=== PATIENT | female | born 1995 | race Caucasian/White ===

== ENCOUNTER 2018-03-25 02:29 | Inpatient (IN) | payer OTHER ==
[2018-03-25] MEDS: Lactated Ringers 1,000 ML IV SCH ×3 (14:55→21:44)
[2018-03-25] MEDS: Oxytocin/Normal Saline 30 UNIT/500 ML BAG IV SCH (15:05)
[2018-03-25] MEDS ORDERED: Acetaminophen 325 MG Tab PO PRN (15:25)
[2018-03-25] MEDS ORDERED: Carboprost Tromethamine 250 MCG/1 ML Amp IM PRN (15:25)
[2018-03-25] MEDS ORDERED: Lactated Ringers 500 ML IV ONE (15:25)
[2018-03-25] MEDS ORDERED: Sodium Chloride 0.9% 10 ML Syringe FLUSH PRN (15:25)
[2018-03-25] MEDS ORDERED: Methylergonovine 0.2 MG/1 ML Amp IM PRN (15:25)
[2018-03-25] MEDS ORDERED: Ondansetron 4 MG/2 ML SDV IV PRN (15:25)
[2018-03-25] MEDS ORDERED: Misoprostol 400 MCG (4 X 100 MCG TAB) RECTAL PRN (15:25)
[2018-03-25] MEDS ORDERED: Tranexamic Acid 1,000 MG in Sodium Chloride 0.9% 100 ML IV PRN (15:25)
[2018-03-25] MEDS ORDERED: Lidocaine 1% 30 ML SDV INJECT PRN (15:25)
[2018-03-25] MEDS ORDERED: hydrOXYzine HCl 25 MG Tab PO ONE (19:09)
[2018-03-25] MEDS ORDERED: Bupivacaine 0.75%/D5W 2 ML Amp ONE (20:31)
[2018-03-25] MEDS ORDERED: fentaNYL 100 MCG/2 ML SDV ONE (20:32)
[2018-03-25] MEDS ORDERED: EPINEPHrine 1 MG/ML SDV ONE (20:32)
--- NOTE | 2018-03-25 22:25 | PCM.PRNOTE ---
- Free Text/Narrative Note: Requested to provide analgesia to full term patient in severe pain. Upon entering the room, patient is supine in bed complaining of severe abdominal/ pelvic pain and discomfort. Procedure was discussed with patient including adverse outcomes and expectations. Pt consented to analgesia, SAB/IT. Pt placed into a sitting position. Landmarks for SAB/IT were identified and marked. Hands were washed and appropriate PPE was applied. Back was prepped with betadine x3. A sterile, transparent, fenestrated drape was applied. Excess betadine was removed. Using 3 mL of a 1% lidocaine solution, a skin wheel was placed at the L3/L4 interspace. A 24 ga (4 inch) Pencan spinal needle was inserted until positive for CSF. Negative for heme or paresthesias. Took 3 attempts. Injected fentanyl 30 mcg, sufentanil 20 mcg, and 9.75 mg of a 0.75% bupivacaine solution with an epi wash. Pt was placed left lateral position for approximately 20 minutes. There were zero complications or adverse outcomes. Will continue to monitor. Procedure Date & Time: 03/25/18
[2018-03-26] MEDS ORDERED: Misoprostol 400 MCG (4 X 100 MCG TAB) ONE (02:28)
--- NOTE | 2018-03-26 03:17 | PCM.LDHP ---
L&D History of Present Illness - General Date of Service: 03/25/18 (admitted from [facility]) Admit Problem/Dx: Patient Status Order with Admit Dx/Problem 03/25/18 15:25 Patient Status [ADT] Routine Admission Diagnosis/Problem Admission Diagnosis/Problem Pre-eclampsia in third trimester Source of Information: Patient, Old Records, Provider History Limitations: Reports: No Limitations - History of Present Illness Introduction:: 22yo @ 37w3d presented to clinic for OB check and found to have elevated BP and proteinuria meeting criteria for pre-eclampsia. cervix ripe, and pt admitted for induction. see [facility] episode notes for details. was found to be having cxns on admit. 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 [employer] History: Reports: : 2 Para: 1 LMP (Approximate): - Infectious Disease History Infectious Disease History: Reports: Chicken Pox - Past Surgical History Other HEENT Surgeries/Procedures: lt lazy eye surgery as child, unsuccessful Social & Family History - Family History Family Medical History: Noncontributory - Tobacco Use Smoking Status *Q: Never Smoker Second Hand Smoke Exposure: No - Caffeine Use Caffeine Use: Reports: Soda Other Caffeine Use: 1 can/day - Recreational Drug Use Recreational Drug Use: No - Living Situation & Occupation Living situation: Reports: , with Family Social History Comment: lives with John and their son Regulo H&P Review of Systems - Review of Systems: Review Of Systems: See Below General: Reports: No Symptoms HEENT: Reports: No Symptoms Pulmonary: Reports: No Symptoms Cardiovascular: Reports: No Symptoms Gastrointestinal: Reports: No Symptoms Genitourinary: Reports: No Symptoms Musculoskeletal: Reports: No Symptoms Skin: Reports: No Symptoms Psychiatric: Reports: No Symptoms Neurological: Reports: No Symptoms Hematologic/Lymphatic: Reports: No Symptoms Immunologic: Reports: No Symptoms L&D Exam - Exam Exam: See Below - Vital Signs Vital Signs: Last Vital Signs Temp 99.1 F 03/25/18 20:00 Pulse 84 03/25/18 20:30 Resp 16 03/25/18 20:00 BP 150/73 H 03/25/18 20:30 Pulse Ox Weight: 260 lb - OB Specific Contraction Duration (sec): 60-90 Contraction Frequency (min): 2-3 Contraction Intensity: Moderate Movement: Active Heart Tones: Present Heart Tones per Min: 140 Heart Rate (FHR) Variability: Moderate (6-25 bmp) Presentation: Right Occiput Posterior (ROP) Estimated Weight: 7 - Pitt Score Pitt Score Cervix Position: Midposition Pitt Score Consistency: Soft Pitt Score Effacement: 51-70% Pitt Score Dilation: 3-4 cm Pitt Score 's Station: -2 Pitt Score Total: 8 - Exam General: Alert, Oriented HEENT: Conjunctiva Clear, EACs Clear, Hearing Intact, Mucosa Moist & [place], Nares Patent, Normal Nasal Septum, Posterior Pharynx Clear, Pupils Equal, Other (exotropia noted), PERRLA Neck: Supple, Trachea Midline Lungs: Clear to Auscultation, Normal Respiratory Effort Cardiovascular: Regular Rate, Regular Rhythm GI/Abdominal Exam: Normal Bowel Sounds, Soft, Non-Tender, No Organomegaly, No Distention, No Abnormal Bruit, Pelvis Stable, Other (gravid uterus) Rectal Exam: Normal Exam (external only), Deferred Genitourinary: Normal external exam, Normal bimanual exam, Normal speculum exam , Cervical dilitation Back Exam: Normal Inspection, Full Range of Motion Extremities: Normal Inspection, Normal Range of Motion, Non-Tender, Normal Capillary Refill, Pedal Edema (1+/2+ pitting) Skin: Warm, Dry, Intact Neurological: Cranial Nerves Intact, Reflexes Equal Bilateral Psychiatric: Alert, Normal Affect, Normal Mood - Patient Data Lab Results Last 24 hrs: pre-eclampsia labs from today reassuring with PLT WNL protein noted on dip UA, and protein creatinine ratio 0.2 - Problem List (1) Term SNOMED Code(s): 48920820 ICD Code: Z34.80 - ENCOUNTER FOR SUPRVSN OF NORMAL , UNSP TRIMESTER Status: Acute Current Visit: Yes (2) Mild pre-eclampsia SNOMED Code(s): 40492218 ICD Code: O14.00 - MILD TO MODERATE PRE-ECLAMPSIA, UNSPECIFIED TRIMESTER Status: Acute Current Visit: Yes (3) Blood type AB- SNOMED Code(s): 587918974 ICD Code: Z67.31 - TYPE AB BLOOD, RH NEGATIVE Status: Acute Current Visit : Yes (4) Rubella non-immune status, antepartum SNOMED Code(s): 771323297 ICD Code: O99.89 - OTH DISEASES AND CONDITIONS COMPL PREG/CHLDBRTH; Z28.3 - UNDERIMMUNIZATION STATUS Status: Acute Current Visit: Yes (5) Rubella nonimmune status, delivered, current hospitalization SNOMED Code(s): 845587686 ICD Code: O99.89 - OTH DISEASES AND CONDITIONS COMPL PREG/CHLDBRTH; Z28.3 - UNDERIMMUNIZATION STATUS Status: Acute Current Visit: Yes (6) Group B Streptococcus not isolated SNOMED Code(s): 111860135 ICD Code: [id number] - Status: Acute Current Visit: Yes (7) Mother currently breast-feeding SNOMED Code(s): 654469350 ICD Code: [id number] - Status: Acute Current Visit: Yes (8) Vacuum extraction, delivered, current hospitalization SNOMED Code(s): 088028082 ICD Code: O66.5 - ATTEMPTED APPLICATION OF VACUUM EXTRACTOR AND FORCEPS Status: Acute Current Visit: Yes (9) Right occiput posterior presentation of fetus SNOMED Code(s): 82326502 ICD Code: O64.0XX0 - OBSTRUCTED LABOR DUE TO INCMPL ROTATION OF HEAD, UNSP Status: Acute Current Visit: Yes (10) Second degree laceration of perineum, delivered, current hospitalization SNOMED Code(s): 680768620 ICD Code: O70.1 - SECOND DEGREE PERINEAL LACERATION DURING DELIVERY Status : Acute Current Visit: Yes Problem List Initiated/Reviewed/Updated: Yes Orders Last 24hrs: Active Orders 24 hr Category Date Time Status Patient Status [ADT] Routine ADT 03/25/18 15:25 Active Communication Order [RC] ASDIRECTED Care 03/25/18 15:25 Active Notify Provider Vital Signs OB [RC] ASDIRECTED Care 03/25/18 15:25 Active Notify Provider [RC] PRN Care 03/25/18 15:25 Active Pump Management, Intrathecal [RC] ASDIRECTED Care 03/25/18 15:33 Active Up ad Ade [RC] ASDIRECTED Care 03/25/18 15:25 Active Vital Signs [RC] PER UNIT ROUTINE Care 03/25/18 15:25 Active Acetaminophen [Tylenol] Med 03/25/18 15:25 Active 650 mg PO Q4H PRN Carboprost Tromethamine [Hemabate DS] Med 03/25/18 15:25 Active 250 mcg IM ASDIRECTED PRN Lactated Ringers [Ringers, Lactated] 1,000 ml Med 03/25/18 15:30 Active IV ASDIRECTED Lidocaine 1% [Xylocaine-MPF 1%] Med 03/25/18 15:25 Active 30 ml INJECT ASDIRECTED PRN Methylergonovine [Methergine] Med 03/25/18 15:25 Active 0.2 mg IM ASDIRECTED PRN Misoprostol [Cytotec] Med 03/25/18 15:25 Active 800 mcg RECTAL ASDIRECTED PRN Ondansetron [Zofran] Med 03/25/18 15:25 Active 4 mg IV Q4H PRN Oxytocin/Normal Saline [Pitocin in NS 30 UNIT/500 ML] Med 03/25/18 15:45 Active 30 unit in 500 ml IV TITRATE Sodium Chloride 0.9% [Saline Flush] Med 03/25/18 15:25 Active 10 ml FLUSH ASDIRECTED PRN Tranexamic Acid [Cyklokapron] 1,000 mg Med 03/25/18 15:25 Active Sodium Chloride 0.9% [Normal Saline] 100 ml IV ONETIME Saline Lock Insert [OM.PC] Routine Oth 03/25/18 15:25 Ordered Resuscitation Status Routine Resus Stat 03/25/18 15:25 Ordered Medication Orders Acetaminophen (Tylenol) 650 mg PO Q4H PRN PRN Reason: Pain (Mild 1-3) and fever Carboprost Tromethamine (Hemabate Ds) 250 mcg IM ASDIRECTED PRN PRN Reason: HEMORRHAGE Lactated Ringer's (Ringers, Lactated) 1,000 mls @ 125 mls/hr IV ASDIRECTED INÉS Last Admin: 03/25/18 21:44 Dose: 125 mls/hr Infusion: 03/25/18 21:44 Dose: 125 mls/hr Admin: 03/25/18 20:01 Dose: 125 mls/hr Infusion: 03/25/18 20:00 Dose: 125 mls/hr Admin: 03/25/18 14:55 Dose: 125 mls/hr Tranexamic Acid 1,000 mg/ (Sodium Chloride) 110 mls @ 660 mls/hr IV ONETIME PRN PRN Reason: Bleeding Oxytocin/Sodium Chloride (Pitocin In Ns 30 Unit/500 Ml) 30 unit in 500 mls @ 2 mls/hr IV TITRATE INÉS; Protocol Last Titration: 03/25/18 21:30 Dose: 8 mls/hr, 8 mls/hr Titration: 03/25/18 21:05 Dose: 6 mls/hr, 6 mls/hr Titration: 03/25/18 20:56 Dose: 0 mls/hr, 0 mls/hr Titration: 03/25/18 18:45 Dose: 5 mls/hr, 5 mls/hr Titration: 03/25/18 16:45 Dose: 4 mls/hr, 4 mls/hr Titration: 03/25/18 15:50 Dose: 3 mls/hr, 3 mls/hr Admin: 03/25/18 15:05 Dose: 2 mls/hr, 2 mls/hr Lidocaine HCl (Xylocaine-Mpf 1%) 30 ml INJECT ASDIRECTED PRN PRN Reason: Perineal Repair Methylergonovine Maleate (Methergine) 0.2 mg IM ASDIRECTED PRN PRN Reason: Hemorrhage Misoprostol (Cytotec) 800 mcg RECTAL ASDIRECTED PRN PRN Reason: Hemorrhage Ondansetron HCl (Zofran) 4 mg IV Q4H PRN PRN Reason: Nausea/Vomiting Last Admin: 03/25/18 20:12 Dose: 4 mg Sodium Chloride (Saline Flush) 10 ml FLUSH ASDIRECTED PRN PRN Reason: Keep Vein Open Assessment/Plan Comment:: Assessment: 22yo @ 37w3d with mild pre-Eclampsia cervix ripe for induction rubella non-immune GBS negative AB negative blood type, received RhoGam in [place] NST reactive Plan: Admit for induction labs done at [facility]--reassuring AROM done @ [facility] with return of clear fluid will proceed with pitocin augmentation further management pending her course in labor. gabino
[2018-03-26] MEDS ORDERED: Measles, Mumps & Rubella Vaccine 0.5 ML SDV SUBCUT ONE (03:34)
--- NOTE | 2018-03-26 03:43 | PCM.DEL ---
L & D Note - General Info Date of Service: 03/26/18 (time of delivery: 0229) Mother's Due Date: 04/12/18 - Delivery Note Labor: Augmented by Oxytocin, Induced by ARM Delivery Outcome: Livebirth Delivery Method: Spontaneous Vaginal Delivery-Single Infant Delivery Mode: Vacuum Extraction Presentation: Right Occiput Posterior (ROP) Nuchal Cord: None Prep: Povidone-Iodine (Betadine Anesthesia Type: Local, Intrathecal Anesthetic: Lidocaine (Xylocaine) 1% Plain Local Anesthetic Volume: 5cc Amniotic Fluid Description: Clear Episiotomy Type: None Laceration: 2nd Degree Suture type: Vicryl Suture size: 2-0 Placenta: Intact, Expressed Cord: 3 Vessels Estimated Blood Loss: 200 Resuscitation Needed: No : Suctioned, Bulb Syringe, Stimulated, Warmed, Oneill Used Provider: Mary Caraballo Score 1 min: 8 Score 5 min: 9 Second Stage Interventions: Reports: Encouragement Given, Laboring Down, Pushing Effectively, Pushing, Knee Chest Position, Other (see below) (peanut ball) Delivery Comments (Free Text/Narrative):: Renetta was pushing extremely well and bringing baby's head down to +2 station with cxns/pushing. baby in OP position. she had been pushing for extended period of time and tried many positions and peanut ball, knee chest, etc. Intrathecal wearing off significantly and she was having a lot of back labor. discussed options, and she wishes to pursue vacuum assistance. Low profile placed without difficulty, and with one pull, vertex delivered in ROP position, followed by rest of baby, immediately to mother's abdomen. strong cry at . excellent APGARs. 3VC, clamped by me, and cut by FOAnabel Lopez. placenta delivered intact. 2nd degree midline lac anesthetized and repaired in standard fashion 200c EBL fundus firm baby nursing. routine PP and nursery cares and orders. hmb Induction Criteria - Pitt Score Pitt Score Dilation: 3-4 cm Pitt Score Effacement: >80% Pitt Score 's Station: -2 Pitt Score Consistency: Soft Pitt Score Cervix Position: Midposition Pitt Score Total: 9 Pitt Score Presenting Part: Reports: Cephalic - Induction Gestational Age >/= 39 wks: No Medical Indication: pre-eclampsia with BP elevated sys>150s and proteinuria on dipstick, confirmed with protein/creatinine ratio 0.2, increasing pitting edema pt with contractions and ripe cervix over 37 weeks. hmb Estimated Pelvis: Reports: Adequate Reassuring Monitoring Strip: Yes Absence of Tachy Systole: Yes - Augmentation Estimated Pelvis: Reports: Adequate Weight Estimated:: Reports: AGA Reassuring Monitoring Strip: Yes Absence of Tachy Systole: Yes Vacuum Extractor Progress Note - Alternative Labor Strategies Considered Alternative Labor Strategies Considered:: Reports: Yes Strategies Considered:: Reports: Contraction Intensity Adequate, Position Changes Used to Facilitate Rotation & Descent, Empty Bladder Indications Considered:: Reports: Yes Indications:: Reports: Prolonged 2nd Stage, Shortening of 2nd Stage for Maternal Benefit Time Out:: Reports: Yes - Patient Prepared Patient Prepared:: Reports: Yes Informed Consent:: Reports: Verbal Risks: Reports: Yes Anesthesia/Analgesia Adequate:: Reports: Yes - Probability of Success High Probability of Success:: Reports: Yes Weight Estimated:: Reports: AGA Patient Diabetic:: Reports: No Pelvis Adequate:: Reports: Yes Position:: OP, +2 station Asynclitic:: Reports: No Station:: +2 - Application Time Maximum Application Time & Number of Pop-Offs Predetermined:: Reports: Yes Type of Vacuum Used:: Reports: Low profile Vacuum Extraction: Successful Comments:: vacuum placed and was on with only one contraction, successful with first pull. hmb - Exit Strategy Exit strategy available:: Reports: Yes and resuscitation teams readily available:: Reports: Yes Consult as indicated:: not indicated - General Info Date of Service: 03/26/18 Functional Status: Reports: Pain Controlled - Review of Systems General: Reports: No Symptoms HEENT: Reports: No Symptoms Pulmonary: Reports: No Symptoms Cardiovascular: Reports: No Symptoms Gastrointestinal: Reports: No Symptoms Genitourinary: Reports: No Symptoms Musculoskeletal: Reports: No Symptoms Skin: Reports: No Symptoms Neurological: Reports: No Symptoms Psychiatric: Reports: No Symptoms - Patient Data Vitals - Most Recent: Last Vital Signs Temp 99.1 F 03/25/18 20:00 Pulse 84 03/25/18 20:30 Resp 16 03/25/18 20:00 BP 150/73 H 03/25/18 20:30 Pulse Ox Weight - Most Recent: 260 lb Med Orders - Current: Current Medications Acetaminophen (Tylenol) 650 mg PO Q4H PRN PRN Reason: Pain (Mild 1-3) and fever Carboprost Tromethamine (Hemabate Ds) 250 mcg IM ASDIRECTED PRN PRN Reason: HEMORRHAGE Lactated Ringer's (Ringers, Lactated) 1,000 mls @ 125 mls/hr IV ASDIRECTED INÉS Last Admin: 03/25/18 21:44 Dose: 125 mls/hr Tranexamic Acid 1,000 mg/ (Sodium Chloride) 110 mls @ 660 mls/hr IV ONETIME PRN PRN Reason: Bleeding Oxytocin/Sodium Chloride (Pitocin In Ns 30 Unit/500 Ml) 30 unit in 500 mls @ 2 mls/hr IV TITRATE INÉS; Protocol Last Titration: 03/25/18 21:30 Dose: 8 mls/hr, 8 mls/hr Lidocaine HCl (Xylocaine-Mpf 1%) 30 ml INJECT ASDIRECTED PRN PRN Reason: Perineal Repair Measles/Mumps/Rubella Vaccine Live (M-M-R Ii Vaccine) 0.5 ml SUBCUT .ONCE ONE Stop: 03/26/18 03:35 Methylergonovine Maleate (Methergine) 0.2 mg IM ASDIRECTED PRN PRN Reason: Hemorrhage Misoprostol (Cytotec) 800 mcg RECTAL ASDIRECTED PRN PRN Reason: Hemorrhage Ondansetron HCl (Zofran) 4 mg IV Q4H PRN PRN Reason: Nausea/Vomiting Last Admin: 03/25/18 20:12 Dose: 4 mg Sodium Chloride (Saline Flush) 10 ml FLUSH ASDIRECTED PRN PRN Reason: Keep Vein Open Discontinued Medications Bupivacaine HCl/Dextrose (Marcaine 0.75% Spinal) Confirm Administered Dose 2 ml .ROUTE .STK-MED ONE Stop: 03/25/18 20:32 Epinephrine HCl (Adrenalin) Confirm Administered Dose 1 mg .ROUTE .STK-MED ONE Stop: 03/25/18 20:33 Fentanyl (Sublimaze) Confirm Administered Dose 100 mcg .ROUTE .STK-MED ONE Stop: 03/25/18 20:33 Hydroxyzine HCl (Atarax) 50 mg PO ONETIME ONE Stop: 03/25/18 19:10 Last Admin: 03/25/18 23:52 Dose: Not Given Lactated Ringer's (Ringers, Lactated) 500 mls @ 500 mls/hr IV .BOLUS ONE Stop: 03/25/18 16:24 Misoprostol (Cytotec) Confirm Administered Dose 400 mcg .ROUTE .STK-MED ONE Stop: 03/26/18 02:29 Sufentanil Citrate (Sufenta) Confirm Administered Dose 50 mcg .ROUTE .STK-MED ONE Stop: 03/25/18 20:33 - Problem List & Annotations (1) Term SNOMED Code(s): 59342900 Code(s): Z34.80 - ENCOUNTER FOR SUPRVSN OF NORMAL , UNSP TRIMESTER Status: Acute Current Visit: Yes (2) Mild pre-eclampsia SNOMED Code(s): 50617083 Code(s): O14.00 - MILD TO MODERATE PRE-ECLAMPSIA, UNSPECIFIED TRIMESTER Status: Acute Current Visit: Yes (3) Blood type AB- SNOMED Code(s): 749222985 Code(s): Z67.31 - TYPE AB BLOOD, RH NEGATIVE Status: Acute Current Visit : Yes (4) Rubella non-immune status, antepartum SNOMED Code(s): 862034600 Code(s): O99.89 - OTH DISEASES AND CONDITIONS COMPL PREG/CHLDBRTH; Z28.3 - UNDERIMMUNIZATION STATUS Status: Acute Current Visit: Yes (5) Rubella nonimmune status, delivered, current hospitalization SNOMED Code(s): 422514748 Code(s): O99.89 - OTH DISEASES AND CONDITIONS COMPL PREG/CHLDBRTH; Z28.3 - UNDERIMMUNIZATION STATUS Status: Acute Current Visit: Yes (6) Group B Streptococcus not isolated SNOMED Code(s): 348126782 Code(s): BXY7653 - Status: Acute Current Visit: Yes (7) Mother currently breast-feeding SNOMED Code(s): 538596056 Code(s): HAU0989 - Status: Acute Current Visit: Yes (8) Vacuum extraction, delivered, current hospitalization SNOMED Code(s): 075281033 Code(s): O66.5 - ATTEMPTED APPLICATION OF VACUUM EXTRACTOR AND FORCEPS Status: Acute Current Visit: Yes (9) Right occiput posterior presentation of fetus SNOMED Code(s): 97955499 Code(s): O64.0XX0 - OBSTRUCTED LABOR DUE TO INCMPL ROTATION OF HEAD, UNSP Status: Acute Current Visit: Yes (10) Second degree laceration of perineum, delivered, current hospitalization SNOMED Code(s): 355539241 Code(s): O70.1 - SECOND DEGREE PERINEAL LACERATION DURING DELIVERY Status: Acute Current Visit: Yes - Problem List Review Problem List Initiated/Reviewed/Updated: Yes - My Orders Last 24 Hours: My Active Orders 03/25/18 15:25 Patient Status [ADT] Routine Communication Order [RC] ASDIRECTED Notify Provider Vital Signs OB [RC] ASDIRECTED Notify Provider [RC] PRN Up ad Ade [RC] ASDIRECTED Vital Signs [RC] PER UNIT ROUTINE Acetaminophen [Tylenol] 650 mg PO Q4H PRN Carboprost Tromethamine [Hemabate DS] 250 mcg IM ASDIRECTED PRN Lidocaine 1% [Xylocaine-MPF 1%] 30 ml INJECT ASDIRECTED PRN Methylergonovine [Methergine] 0.2 mg IM ASDIRECTED PRN Misoprostol [Cytotec] 800 mcg RECTAL ASDIRECTED PRN Ondansetron [Zofran] 4 mg IV Q4H PRN Sodium Chloride 0.9% [Saline Flush] 10 ml FLUSH ASDIRECTED PRN Tranexamic Acid [Cyklokapron] 1,000 mg Sodium Chloride 0.9% [Normal Saline] 100 ml IV ONETIME Saline Lock Insert [OM.PC] Routine Resuscitation Status Routine 03/25/18 15:30 Lactated Ringers [Ringers, Lactated] 1,000 ml IV ASDIRECTED 03/25/18 15:33 Pump Management, Intrathecal [RC] ASDIRECTED 03/25/18 15:45 Oxytocin/Normal Saline [Pitocin in NS 30 UNIT/500 ML] 30 unit in 500 ml IV TITRATE 03/26/18 03:34 Vaccines to be Administered [RC] PER UNIT ROUTINE Measles, Mumps & Rubella [M-M-R II Vaccine] 0.5 ml SUBCUT .ONCE ONE - Plan Plan:: Assessment: 22yo @ 37w3d with mild pre-Eclampsia cervix ripe for induction rubella non-immune GBS negative AB negative blood type, received RhoGam in [place] NST reactive Plan: Admit for induction labs done at [facility]--reassuring AROM done @ [facility] with return of clear fluid will proceed with pitocin augmentation further management pending her course in labor. hmb Delivery comment: Viable male infant born on [birth year] @ 0229 APGARs 8 & 9 weight pending VAVD without complications cord blood work up ordered--will get RhoGam if indicated MMR ordered for non-immune Rubella status will continue to monitor BP closely. other routine cares and orders. All questions answered family appears happy with care and plan. b
[2018-03-26] MEDS: Oxytocin/Normal Saline 30 UNIT/500 ML BAG IV SCH (04:39)
[2018-03-26] MEDS ORDERED: Benzocaine/Menthol 20%-0.5% Spray 56 GM Canister TOP PRN (04:47)
--- NOTE | 2018-03-26 11:27 | PCM.SN ---
- Free Text/Narrative Note: DOS: 03[birth year]-18 Doing well, delivered earlier today. some back discomfort eating well voiding well nursing and pumping Afebrile, VSS BAby is RH positive She will get RhoGam as indicated Continue to follow closely Likely home Friday or Friday pending clinical course of mom and baby. hmb
[2018-03-26] MEDS ORDERED: Simethicone 80 MG Tab.Chew PO PRN (12:21)
[2018-03-26] MEDS ORDERED: Zolpidem 5 MG Tab PO PRN (12:21)
[2018-03-26] MEDS ORDERED: fentaNYL 100 MCG/2 ML SDV ITHECAL ONE (12:32)
[2018-03-26] MEDS ORDERED: EPINEPHrine 1 MG/ML SDV ONE (12:32)
[2018-03-26] MEDS ORDERED: Bupivacaine 0.75%/D5W 2 ML Amp ONE (12:32)
[2018-03-26] MEDS: Ibuprofen 800 MG Tab PO PRN (13:49)
[2018-03-26] MEDS: Docusate Sodium 100 MG Cap PO PRN (21:42)
[2018-03-27] MEDS: Ibuprofen 800 MG Tab PO PRN (01:01)
[2018-03-27] MEDS: Docusate Sodium 100 MG Cap PO PRN (07:37)
[2018-03-27] MEDS: Prenatal Multivitamin with Calcium/Folic Acid/Iron Tab PO SCH ×2 (07:37→08:12)
[2018-03-27 08:15] VITALS: BP 143/84
--- NOTE | 2018-03-27 11:02 | PCM.PNPP ---
- General Info Date of Service: 03/27/18 (PPD # 1 S/P Vacuum assisted vaginal Delivery) Functional Status: Reports: Pain Controlled, Tolerating Diet, Ambulating, Urinating - Review of Systems General: Reports: No Symptoms HEENT: Reports: No Symptoms Pulmonary: Reports: No Symptoms Cardiovascular: Reports: No Symptoms Gastrointestinal: Reports: No Symptoms Genitourinary: Reports: No Symptoms Musculoskeletal: Reports: No Symptoms Skin: Reports: No Symptoms Neurological: Reports: No Symptoms Psychiatric: Reports: No Symptoms - General Info Date of Service: 03/27/18 (PPD # 1 S/P Vacuum assisted vaginal delivery) - Patient Data Vital Signs - Most Recent: Last Vital Signs Temp 98.1 F 03/27/18 08:00 Pulse 76 03/27/18 08:00 Resp 16 03/27/18 08:00 BP 143/84 H 03/27/18 08:00 Pulse Ox 100 03/27/18 08:00 Weight - Most Recent: 260 lb Lab Results - Last 24 Hours: Laboratory Results - last 24 hr 03/26/18 03/27/18 Range/Units 08:35 06:05 WBC 10.5 H (5.0-10.0) 10^3/uL RBC 3.82 L (4.2-5.4) 10^6/uL Hgb 11.3 L (12.0-16.0) g/dL Hct 35.1 L (37.0-47.0) % MCV 91.9 (80-100) fL MCH 29.6 (27.0-34.0) pg MCHC 32.2 L (33.0-35.0) g/dL Plt Count 130 L (150-450) 10^3/uL Antibody Identification Anti-D Med Orders - Current: Current Medications Acetaminophen (Tylenol) 650 mg PO Q4H PRN PRN Reason: Pain (Mild 1-3) and fever Last Admin: 03/27/18 07:37 Dose: 650 mg Benzocaine/Menthol (Dermoplast Pain Relief Lisman) 1 gm TOP ASDIRECTED PRN PRN Reason: Perineal Comfort Measure Last Admin: 03/26/18 09:45 Dose: 1 spray Carboprost Tromethamine (Hemabate Ds) 250 mcg IM ASDIRECTED PRN PRN Reason: HEMORRHAGE Docusate Sodium (Colace) 100 mg PO BID PRN PRN Reason: Constipation Last Admin: 03/27/18 07:37 Dose: 100 mg Lactated Ringer's (Ringers, Lactated) 1,000 mls @ 125 mls/hr IV ASDIRECTED INÉS Last Admin: 03/25/18 21:44 Dose: 125 mls/hr Tranexamic Acid 1,000 mg/ (Sodium Chloride) 110 mls @ 660 mls/hr IV ONETIME PRN PRN Reason: Bleeding Oxytocin/Sodium Chloride (Pitocin In Ns 30 Unit/500 Ml) 30 unit in 500 mls @ 2 mls/hr IV TITRATE INÉS; Protocol Last Titration: 03/26/18 06:00 Dose: 0 mls/hr, 0 mls/hr Ibuprofen (Motrin) 800 mg PO Q8H PRN PRN Reason: Mild Pain or Fever Last Admin: 03/27/18 01:01 Dose: 800 mg Lidocaine HCl (Xylocaine-Mpf 1%) 30 ml INJECT ASDIRECTED PRN PRN Reason: Perineal Repair Last Admin: 03/26/18 01:40 Dose: 10 ml Methylergonovine Maleate (Methergine) 0.2 mg IM ASDIRECTED PRN PRN Reason: Hemorrhage Misoprostol (Cytotec) 800 mcg RECTAL ASDIRECTED PRN PRN Reason: Hemorrhage Ondansetron HCl (Zofran) 4 mg IV Q4H PRN PRN Reason: Nausea/Vomiting Last Admin: 03/25/18 20:12 Dose: 4 mg Prenat Multivit/Video Network Engineer/Iron/Folic Ac ( Plus Iron) 1 each PO DAILY [facility] Last Admin: 03/27/18 08:12 Dose: Not Given Simethicone (Simethicone) 80 mg PO Q4H PRN PRN Reason: Gas Sodium Chloride (Saline Flush) 10 ml FLUSH ASDIRECTED PRN PRN Reason: Keep Vein Open Zolpidem Tartrate (Ambien) 5 mg PO BEDTIME PRN PRN Reason: Insomnia Discontinued Medications Bupivacaine HCl/Dextrose (Marcaine 0.75% Spinal) Confirm Administered Dose 2 ml .ROUTE .STK-MED ONE Stop: 03/25/18 20:32 Last Admin: 03/26/18 08:16 Dose: Not Given Bupivacaine HCl/Dextrose (Marcaine 0.75% Spinal) 1.3 ml .XX .STK-MED ONE Stop: 03/26/18 12:33 Epinephrine HCl (Adrenalin) Confirm Administered Dose 1 mg .ROUTE .STK-MED ONE Stop: 03/25/18 20:33 Last Admin: 03/26/18 08:16 Dose: Not Given Epinephrine HCl (Adrenalin) 0.1 mg .XX .STK-MED ONE Stop: 03/26/18 12:33 Fentanyl (Sublimaze) Confirm Administered Dose 100 mcg .ROUTE .STK-MED ONE Stop: 03/25/18 20:33 Last Admin: 03/26/18 08:16 Dose: Not Given Fentanyl (Sublimaze) 30 mcg ITHECAL .STK-MED ONE Stop: 03/26/18 12:33 Hydroxyzine HCl (Atarax) 50 mg PO ONETIME ONE Stop: 03/25/18 19:10 Last Admin: 03/25/18 23:52 Dose: Not Given Lactated Ringer's (Ringers, Lactated) 500 mls @ 500 mls/hr IV .BOLUS ONE Stop: 03/25/18 16:24 Last Admin: 03/26/18 12:33 Dose: Not Given Lidocaine HCl (Xylocaine-Mpf 1%) 3 ml .XX .STK-MED ONE Stop: 03/26/18 12:33 Measles/Mumps/Rubella Vaccine Live (M-M-R Ii Vaccine) 0.5 ml SUBCUT .ONCE ONE Stop: 03/26/18 03:35 Last Admin: 03/26/18 09:45 Dose: 0.5 ml Misoprostol (Cytotec) Confirm Administered Dose 400 mcg .ROUTE .STK-MED ONE Stop: 03/26/18 02:29 Last Admin: 03/26/18 09:05 Dose: Not Given Sufentanil Citrate (Sufenta) Confirm Administered Dose 50 mcg .ROUTE .STK-MED ONE Stop: 03/25/18 20:33 Last Admin: 03/26/18 08:17 Dose: Not Given Sufentanil Citrate (Sufenta) 20 mcg ITHECAL .STK-MED ONE Stop: 03/26/18 12:33 - Interaction Infant Disposition, : in Room with Family Infant Interaction: Holding Infant Feeding: Attempted ; Nursed Fair/Poor, Continues to Breastfeed, Encouraged to Breastfeed Support Person: - Recovery Exam Fundal Tone: Firm Fundal Level: 1 Fingerbreadths Below Umbilicus Fundal Placement: Midline Lochia Amount: Small Lochia Color: Rubra/Red Perineum Description: Intact, Minimal Bruising/Swelling Episiotomy/Laceration: None Bladder Status: Voiding Urinary Elimination: Voided - Exam General: Alert, Oriented, Cooperative, No Acute Distress HEENT: Pupils Equal, Pupils Reactive, Mucous Membr. Moist/[place] Neck: Supple Lungs: Clear to Auscultation, Normal Respiratory Effort Cardiovascular: Regular Rate, Regular Rhythm, No Murmurs GI/Abdominal Exam: Normal Bowel Sounds, Soft, Non-Tender, No Distention Extremities: Normal Inspection, Normal Range of Motion, Non-Tender, No Pedal Edema Skin: Warm, Dry Wound/Incisions: Healing Well Neurological: No New Focal Deficit, Normal Gait, Normal Speech, Normal Tone Psy/Mental Status: Alert, Normal Affect, Normal Mood - Problem List Review Problem List Initiated/Reviewed/Updated: Yes - My Orders Last 24 Hours: My Active Orders 03/27/18 10:52 Ready for Discharge [RC] PER UNIT ROUTINE - Plan Plan:: Assessment: PPD # 1 S/P Vacuum assisted vaginal delivery Doing well PLAN: Discharge to home Follow-up with Dr. Caraballo for recheck Ibuprofen for pain as needed.
--- NOTE | 2018-03-27 13:13 | DISCH ---
INDICATION FOR ADMISSION: Ms. Callahan is a 22-year-old, 2, para 1-0-0-1 female, at 37 and 3/7 weeks' gestation, who reported to Labor and Delivery for induction of labor. She was found to have preeclampsia without severe features. She had elevated blood pressure with proteinuria. She was 3 to 4 cm dilated, 60% effaced, and -2 station on admission, so Pitocin augmentation was started. Artificial rupture of membranes occurred with clear fluid noted. The patient tolerated her labor quite well. She did have an intrathecal for pain control which worked quite well. Once she got to complete, she started pushing. She had a prolonged second stage labor, so vacuum-assisted vaginal delivery occurred with one push and one pull with delivery of a viable male infant weighing 6 pounds 10 ounces and 19-1/4 inches long with scores of 9 at 1 minute and 9 at 5 minutes. She recovered and did quite well. The infant went to the nursery. No complications occurred throughout her hospital stay. She was afebrile. Vital signs were stable. She tolerated her diet well and ambulated quite well. She was discharged to home on day #1. LABORATORY AND DIAGNOSTIC STUDIES: On 03/27/2018, WBC 10.5, hemoglobin 11.3, hematocrit 35.1, and platelet count 130,000. DISCHARGE INSTRUCTIONS: 1. Discharged to home. 2. Follow up with [facility] at [place] for a 6-week checkup or sooner with Dr. Caraballo if needed. 3. Ibuprofen 800 mg 1 tablet t.i.d. p.r.n. for pain. 4. Discharge instructions including activity, followup, medications, diet, and wound care were discussed with the patient. She understands these and is willing to comply with these. 5. All questions answered. DISCHARGE DIAGNOSES: 1. A 37 and 3/7-week intrauterine . 2. Preeclampsia without severe features. 3. Pitocin augmentation. 4. Artificial rupture of membranes. 5. Prolonged second stage labor. 6. Vacuum-assisted vaginal delivery of a viable male infant, weighing 6 pounds 10 ounces, 19-1/4 inches long with scores of 9 at 1 minute and 9 at 5 minutes. 7. Intrathecal anesthesia. 8. Rubella nonimmune. 9. AB negative blood type. 10.RhoGAM IM 300 mcg given. MOD /[id number]
== END 2018-03-27 12:30 | disposition home or self-care (01) | DRG 775 ==
LOC: DL.OB 02:29 → OBSVTOIN 03-26 02:29
PROVIDERS: ADMIT Family Medicine; ATTEND Family Medicine
PROC: 3E0S3GC Introduction of Other Therapeutic Substance into Epidural Space, Percutaneous Approach (ICD-10-PCS; 2018-03-25)
PROC: 10D07Z6 Extraction of Products of Conception, Vacuum, Via Natural or Artificial Opening (ICD-10-PCS; principal; 2018-03-26)
PROC: 0KQM0ZZ Repair Perineum Muscle, Open Approach (ICD-10-PCS; 2018-03-26)
PROC: 3E033VJ Introduction of Other Hormone into Peripheral Vein, Percutaneous Approach (ICD-10-PCS; 2018-03-26)
PROC: 10907ZC Drainage of Amniotic Fluid, Therapeutic from Products of Conception, Via Natural or Artificial Opening (ICD-10-PCS; 2018-03-26)
PROC: 3E0134Z Introduction of Serum, Toxoid and Vaccine into Subcutaneous Tissue, Percutaneous Approach (ICD-10-PCS; 2018-03-26)
DX: O14.04 Mild to moderate pre-eclampsia, complicating childbirth (principal); O64.0XX0 Obstructed labor due to incomplete rotation of fetal head, not applicable or unspecified; O70.1 Second degree perineal laceration during delivery; Z37.0 Single live birth; Z3A.37 37 weeks gestation of pregnancy; Z23 Encounter for immunization
CPT/HCPCS: 01967; 36415; 59025; 59409; 85027; 85460; 86850; 86900; 86901; 90471; 90707; A9270-GY; J0171; J2405; J2590; J2790; J3010; J7120